=== PATIENT | male | born 1990 | race Caucasian/White ===

== ENCOUNTER 2017-04-10 14:08 | Emergency (ER) | payer BC ==
[~2017-04-10] VITALS: Ht 177.8 cm; Wt 77.1 kg
[2017-04-10 14:18] VITALS: BP 113/64
--- NOTE | 2017-04-10 14:32 | NUR ---
PATIENT TO BED 7 AT THIS TIME.
[2017-04-10] MEDS ORDERED: ONDANSETRON 4 MG/2 ML VIAL IVP ONE (14:35)
[2017-04-10] MEDS ORDERED: NACL 0.9% 1,000 ML IV ONE (14:35)
[2017-04-10] MEDS ORDERED: DICYCLOMINE 20 MG/2 ML VIAL IM ONE (14:35)
--- NOTE | 2017-04-10 15:02 | NUR ---
26/M PRESENT TO ER C/O LOWER ABDOMINAL DISCOMFORT "PRESSURE" WITH N/V/WATERY DARK STOOLS X2 WKS .DENIES ETOH ABUSE, DENIES DYSURIA. PAIN 5/10 DISCOMFORT PRESSURE. ERMD NOTIFIED OF PATIENT STATUS.
--- NOTE | 2017-04-10 15:49 | NUR ---
Patient discharged with v/s stable. Written and verbal after care instructions given and explained. Patient alert, oriented and verbalized understanding of instructions. Ambulatory with steady gait. All questions addressed prior to discharge. ID band removed. Patient advised to follow up with PMD. Rx of ZOFRAN 4MG ODT, CIPRO 500MG AND BENTYL 20MG TABLET given. Patient educated on indication of medication including possible reaction and side effects. Opportunity to ask questions provided and answered.
[2017-04-10 15:50] VITALS: BP 121/70
== END 2017-04-10 15:49 | disposition home or self-care (01) ==
LOC: MED 14:08
DX: A09 Infectious gastroenteritis and colitis, unspecified (principal); R11.2 Nausea with vomiting, unspecified; R50.9 Fever, unspecified
CPT/HCPCS: 36415; 80053; 83690; 85025; 85610; 85730; 96361; 96372; 96374; 99284; J0500; J2405; J7030

== ENCOUNTER 2017-04-13 15:32 | Emergency (ER) | payer BC ==
[~2017-04-13] VITALS: Ht 175.3 cm; Wt 74.8 kg
[2017-04-13 15:58] VITALS: BP 117/63
[2017-04-13] MEDS ORDERED: NACL 0.9% 1,000 ML IV SCH (16:40)
[2017-04-13] MEDS ORDERED: FAMOTIDINE 20 MG/2 ML VIAL IVP ONE (16:40)
[2017-04-13] MEDS ORDERED: ONDANSETRON 4 MG/2 ML VIAL IVP ONE (16:40)
[2017-04-13 16:57] LABS: HEMATOCRIT 41.7 % (36-52); MEAN CORPUSCULAR HEMOGLOBIN 29 pg (27-31); MEAN CORPUSCULAR HGB CONC 34 g/dL (33-37); MEAN CORPUSCULAR VOLUME 87 fL (80-94); PLATELET COUNT (AUTO) 358 K/uL (140-450); RED BLOOD CELL COUNT(AUTO) 4.79 MIL/uL (4.20-6.10); RED CELL DISTRIBUTION WIDTH 11.1 % (11.6-13.7); WHITE BLOOD COUNT (AUTO) 13.6 K/uL (4.8-10.8)
--- NOTE | 2017-04-13 17:00 | NUR ---
26 YO MALE BIB SELF FOR ABDOMINAL PAIN VOMITING AND DIARRHEA SEEN HERE ON THURSDAY. PAIN 2/10 CRAMPING NON RADIAITING. AAOx4, PERRLA, BREATHING EVEN AND UNLABORED. ERMD NOTIFIED OF PATIENT STATUS.
--- NOTE | 2017-04-13 17:10 | NUR ---
Patient being evaluated by physician at bedside.
[2017-04-13 17:16] LABS: ANION GAP 13.8 (8-16); CALCIUM 8.6 mg/dL (8.5-10.1); CARBON DIOXIDE 27.3 mmol/L (21-32); CREATININE 1.2 mg/dL (0.6-1.3); INR 1.2 (0.8-1.2); PARTIAL THROMBOPLASTIN TIME 25.2 secs (22-35.6); POTASSIUM 3.1 mmol/L (3.5-5.1); PROTHROMBIN TIME 11.4 secs (10.8-13.4)
[2017-04-13 17:17] LABS: AMYLASE 47 U/L (25-115); BAND % (MANUAL) 25 % (0-8); LIPASE 261 U/L (73-393); LYMPHOCYTES % (MANUAL) 14 % (20-46); NEUTROPHILS % (MANUAL) 54 (43-65)
[2017-04-13 17:18] LABS: EOSINOPHILS % (MANUAL) 2 % (0-4); METAMYELOCYTES % 1 % (0-0); MONOCYTES % (MANUAL) 4 % (5-12); PLATELET ESTIMATE ADEQUATE
[2017-04-13 17:23] LABS: ALBUMIN 3.2 g/dL (3.4-5.0); TOTAL BILIRUBIN 0.3 mg/dL (0.0-1.0); TOTAL PROTEIN, SERUM 7.5 g/dL (6.4-8.2)
[2017-04-13] MEDS ORDERED: metroNIDAZOLE 500 MG/NS PREMIX 100 ML IV ONE (18:00)
[2017-04-13] MEDS ORDERED: cefTRIAXone 2,000 MG in DEXTROSE 5% 100 ML IV ONE (18:00)
--- NOTE | 2017-04-13 18:10 | NUR ---
PT RESTING. PATIENT STATES PAIN OF 0/10 AT THIS TIME; VSS; PATIENT POSITIONED FOR COMFORT; HOB ELEVATED; BEDRAILS UP X2; BED DOWN. ER MD MADE AWARE OF PT STATUS.
[2017-04-13] MEDS ORDERED: cefTRIAXone 2,000 MG VIAL ONE (18:42)
[2017-04-13 19:04] LABS: APPEARANCE,URINE CLEAR (CLEAR); BILIRUBIN,URINE NEGATIVE (NEGATIVE); BLOOD, URINE NEGATIVE (NEGATIVE); COLOR,URINE YELLOW (YELLOW); LEUKOCYTE ESTERASE ,URINE NEGATIVE (NEGATIVE); NITRITE, URINE NEGATIVE (NEGATIVE); PH,URINE 6.5 (5.0-9.0); PROTEIN,URINE TRACE (NEGATIVE); UGLUCOSE NEGATIVE (NEGATIVE); UROBILINOGEN,URINE 0.2 EU/dL (0.2 - 1)
[2017-04-13 19:07] LABS: BACTERIA,URINE None Seen /HPF (None Seen); RBC,URINE NONE SEEN /HPF (0-5); SQUAMOUS EPITHELIAL CELL,UR None Seen /LPF (0-3 (FEW)); WBC,URINE NONE SEEN /HPF (0-5)
--- NOTE | 2017-04-13 19:16 | NUR ---
PT STABLE, RESTING IN BED, RECEVING IV ANTIBIOTICS. NO S/S OF DISTRESS NOTED.
--- NOTE | 2017-04-13 19:18 | NUR ---
Pt report given to RAMY GALLEGOS. Transfer of care at this time.
[2017-04-13 19:57] LABS: LACTIC ACID 1.8 mmol/L (0.4-2.0)
[2017-04-13 20:49] VITALS: BP 117/64
--- NOTE | 2017-04-13 20:49 | NUR ---
Patient discharged with v/s stable. Written and verbal after care instructions given and explained. Patient alert, oriented and verbalized understanding of instructions. Ambulatory with steady gait. All questions addressed prior to discharge. ID band removed. Patient advised to follow up with PMD OR RETURN TO ER IF CONDITION WORSENS, A LIST WITH GI SPECIALISTS PROVIDED FOR PT TO SCHEDULE AN APPT. Rx of FLAGYL, NORCO, AND RANITIDINE given. Patient educated on indication of medication including possible reaction and side effects. Opportunity to ask questions provided and answered.
== END 2017-04-13 20:49 | disposition home or self-care (01) ==
LOC: MED 15:32
DX: K92.2 Gastrointestinal hemorrhage, unspecified (principal)
CPT/HCPCS: 36415; 71010; 80053; 81001; 82150; 83605; 83690; 85025; 85610; 85730; 87040; 87086; 93005; 96361; 96365; 96367; 96375; 99285; J0696; J2405; J3490; J7030; Q0092; 96366